=== PATIENT | female | born 1965 | race Caucasian/White ===

== ENCOUNTER 2017-06-11 14:57 | Emergency (ER) | payer OTHER ==
[~2017-06-11] VITALS: Ht 165.1 cm; Wt 100.0 kg
[2017-06-11] MEDS ORDERED: NAPROSYN500 MG PO (16:34)
[2017-06-11 16:50] VITALS: BP 118/67
== END 2017-06-11 16:50 | disposition home or self-care (01) | DRG 563 ==
LOC: ED 14:57
DX: S93.401A Sprain of unspecified ligament of right ankle, initial encounter (principal); W10.9XXA Fall (on) (from) unspecified stairs and steps, initial encounter; Y92.029 Unspecified place in mobile home as the place of occurrence of the external cause; Y92.833 Campsite as the place of occurrence of the external cause